=== PATIENT | male | born 1985 | race Caucasian/White ===

== ENCOUNTER 2023-12-23 14:04 | Emergency (ER) | payer BC, OTHER ==
[2023-12-23] MEDS ORDERED: Lidocaine 1% (PF) 30 ML VIAL ONE (14:20)
[2023-12-23] MEDS ORDERED: Bacitracin 1 PK ONE (14:20)
== END 2023-12-23 15:15 | disposition home or self-care (01) ==
LOC: NAV ERS 14:04
DX: S61.432A Puncture wound without foreign body of left hand, initial encounter (principal); S61.412A Laceration without foreign body of left hand, initial encounter; W26.1XXA Contact with sword or dagger, initial encounter; Y93.89 Activity, other specified; Z87.891 Personal history of nicotine dependence
CPT/HCPCS: 12001; J2001